=== PATIENT | female | born 1990 | race Hispanic/Latino ===

== ENCOUNTER 2021-03-30 08:55 | Emergency (ER) | payer BC ==
--- NOTE | 2021-03-30 09:13 | EDPHYS ---
Physician Documentation [facility] Name: Kaylee Ryder Age: 30 yrs Sex: Female : 1990 Arrival Date: 03/30/2021 Time: 08:59 Bed 11 Private MD: ED Physician Jake Ferrari HPI: 03/30 09:08 This 30 yrs old Female presents to ER via Ambulatory with complaints of Insect rn Bite. 09:08 The patient or guardian complains of swelling. The complaints affect the palmar aspect rn of left forearm. Onset: The symptoms/episode began/occurred 4 day(s) ago. Modifying factors: The symptoms are alleviated by nothing. the symptoms are aggravated by nothing. Associated signs and symptoms: Pertinent positives: Itching, Pertinent negatives: decreased range of motion, fever, numbness, swelling, weakness. Severity of symptoms: At their worst the symptoms were mild, in the emergency department the symptoms are unchanged. The patient has not experienced similar symptoms in the past. The patient has not recently seen a physician. Patient reports was outdoors a few days ago, unsure of anything but her but small area started to left forearm with itching and redness that has increased in size but has not spread anywhere else. Denies shortness of breath. No fever. Historical: - Allergies: 09:02 No Known Allergies; hb - Immunization history:: Adult Immunizations up to date. - Social history:: Smoking status: Patient denies any tobacco usage or history of. - Family history:: not pertinent. - Hospitalizations: : No recent hospitalization is reported. ROS: 09:08 Constitutional: Negative for fever, chills, and weight loss, Eyes: Negative for injury, rn pain, redness, and discharge, ENT: Negative for injury, pain, and discharge, Neck: Negative for injury, pain, and swelling, Cardiovascular: Negative for chest pain, palpitations, and edema, Respiratory: Negative for shortness of breath, cough, wheezing, and pleuritic chest pain, Abdomen/GI: Negative for abdominal pain, nausea, vomiting, diarrhea, and constipation, Back: Negative for injury and pain, MS/Extremity: Negative for injury and deformity, Skin: Positive for rash and swelling to left forearm Neuro: Negative for headache, weakness, numbness, tingling, and seizure. Exam: 09:08 Constitutional: This is a well developed, well nourished patient who is awake, alert, rn and in no acute distress. Head/Face: Normocephalic, atraumatic. ENT: Speaking full sentences, no stridor Cardiovascular: Regular rate and rhythm. No pulse deficits. Respiratory: No increased work of breathing, no retractions or nasal flaring. Skin: Warm, dry MS/ Extremity: Pulses equal, no cyanosis. Neurovascular intact. Full, normal range of motion. Left volar forearm with 6 to 8 cm area of induration and slight erythema. Positive for excoriations. No bullae or fluctuance. No streaking or tenderness of the proximal arm. Neuro: Awake and alert, GCS 15, oriented to person, place, time, and situation. Cranial nerves II-XII grossly intact. Motor strength 5/5 in all extremities. Sensory grossly intact. Cerebellar exam normal. Normal gait. Vital Signs: 09:01 BP 152 / 83; Pulse 90; Resp 16; Temp 97.8; Pulse Ox 98% on R/A; Pain 4/10; hb 09:28 BP 120 / 87; Pulse 85; Resp 16; Pulse Ox 99% on R/A; es2 MDM: 09:03 Patient medically screened. rn 09:08 Differential diagnosis: cellulitis, insect bite, localized allergic reaction. Data rn reviewed: vital signs, nurses notes, and as a result, I will discharge patient. Counseling: I had a detailed discussion with the patient and/or guardian regarding: the historical points, exam findings, and any diagnostic results supporting the discharge/admit diagnosis, the need for outpatient follow up, to return to the emergency department if symptoms worsen or persist or if there are any questions or concerns that arise at home. Special discussion: I discussed with the patient/guardian in detail that at this point there is no indication for admission to the hospital. It is understood, however, that if the symptoms persist or worsen the patient needs to return immediately for re-evaluation. Administered Medications: No medications were administered Disposition Summary: 03/30/21 09:12 Discharge Ordered Location: Home rn Problem: new rn Symptoms: are unchanged rn Condition: Stable rn Diagnosis - Urticaria, unspecified rn - Cellulitis of left upper limb rn Followup: rn - With: Private Physician - When: As needed - Reason: Recheck today's complaints, Re-evaluation by your physician Discharge Instructions: - Discharge Summary Sheet rn - Pete rn - Rash, Adult rn - Cellulitis, Adult, [id number] rn Forms: - Medication Reconciliation Form rn - Thank You Letter rn - Antibiotic cornice maker - Prescription Opioid Use rn Prescriptions: - Clindamycin HCl 300 mg Oral Capsule - take 1 capsule by ORAL route every 6 hours for 10 days; 40 capsule; Refills: 0, rn Product Selection Permitted - Medrol (Grant) 4 mg Oral Tablets, Dose Pack - take 1 tablet by ORAL route as directed - follow package instructions; 1 rn packet; Refills: 0, Product Selection Permitted Signatures: Jake Ferrari MD MD rn Felicia Maritn RN RN
--- NOTE | 2021-03-30 09:13 | ER ---
Nurse's Notes [facility] Name: Kaylee Ryder Age: 30 yrs Sex: Female : 1990 Arrival Date: 03/30/2021 Time: 08:59 Bed 11 Private MD: Diagnosis: Urticaria, unspecified;Cellulitis of left upper limb Presentation: 03/30 09:01 Chief complaint: Left forearm redness, swelling, burning, and itching x 4 days. hb Coronavirus screen: At this time, the client does not indicate any symptoms associated with coronavirus-19. Ebola Screen: No symptoms or risks identified at this time. Initial Sepsis Screen: Does the patient meet any 2 criteria? No. Patient's initial sepsis screen is negative. Does the patient have a suspected source of infection? No. Patient's initial sepsis screen is negative. Risk Assessment: Do you want to hurt yourself or someone else? Patient reports no desire to harm self or others. Onset of symptoms was March 27, 2021. 09:01 Method Of Arrival: Ambulatory 09:01 Acuity: ELEAZAR 4 hb Triage Assessment: 09:10 Bite description: bite sustained to left forearm by unknown insect, animal information: es2 vaccination(s) is unknown. General: Appears in no apparent distress. comfortable, well developed, well nourished, Behavior is calm, cooperative, appropriate for age. Pain: Denies pain. EENT: No signs and/or symptoms were reported regarding the EENT system. Neuro: Level of Consciousness is awake, alert, obeys commands, Oriented to person, place, time, situation, Appropriate for age Gait is steady, Speech is normal. Cardiovascular: Capillary refill < 3 seconds Patient's skin is warm and dry. Respiratory: Airway is patent Respiratory effort is even, unlabored, Respiratory pattern is regular, symmetrical. GI: No signs and/or symptoms were reported involving the gastrointestinal system. : No signs and/or symptoms were reported regarding the genitourinary system. Derm: Rash noted that is itchy. Musculoskeletal: No signs and/or symptoms reported regarding the musculoskeletal system. Historical: - Allergies: 09:02 No Known Allergies; hb - Immunization history:: Adult Immunizations up to date. - Social history:: Smoking status: Patient denies any tobacco usage or history of. - Family history:: not pertinent. - Hospitalizations: : No recent hospitalization is reported. Screenin:09 Abuse screen: Denies threats or abuse. Denies injuries from another. Nutritional es2 screening: No deficits noted. Tuberculosis screening: No symptoms or risk factors identified. Fall Risk Ambulatory Aid- None/Bed Rest/Nurse Assist (0 pts). Gait- Normal/Bed Rest/Wheelchair (0 pts) Mental Status- Oriented to own ability (0 pts). Assessment: 09:12 Derm: Skin is pink, red. es2 09:13 Derm: Skin is intact. es2 Vital Signs: 09:01 BP 152 / 83; Pulse 90; Resp 16; Temp 97.8; Pulse Ox 98% on R/A; Pain 4/10; hb 09:28 BP 120 / 87; Pulse 85; Resp 16; Pulse Ox 99% on R/A; es2 ED Course: 08:59 Patient arrived in ED. mr 09:02 Triage completed. hb 09:02 Arm band placed on. hb 09:03 Jake Ferrari MD is Attending Physician. rn 09:04 Ingrid Winkler RN is Primary Nurse. es2 09:12 No provider procedures requiring assistance completed. es2 09:13 Patient has correct armband on for positive identification. Call light in reach. es2 09:27 Patient did not have IV access during this emergency room visit. es2 Administered Medications: No medications were administered Outcome: 09:12 Discharge ordered by . rn 09:27 Discharged to home ambulatory. es2 09:27 Condition: stable 09:27 Discharge instructions given to patient, Instructed on discharge instructions, medication usage, Demonstrated understanding of instructions, medications, Prescriptions given X 2. 09:28 Patient left the ED. es2 Signatures: Shayla Mcnair Jake Ferrari MD MD rn Baxter, Heather, RN RN hb Smith, Elizabeth, RN RN es2
[2021-03-30 09:35] VITALS: TEMP 97.8
[2021-03-30 09:37] VITALS: BP 120/87; O2SAT 99
== END 2021-03-30 09:28 | disposition home or self-care (01) ==
LOC: ER 08:55
DX: L03.114 Cellulitis of left upper limb (principal); L50.9 Urticaria, unspecified
CPT/HCPCS: 99282

== ENCOUNTER 2021-07-02 00:41 | Emergency (ER) | payer BC ==
[2021-07-02 03:35] LABS: Urine Blood Negative (Negative); Urine Glucose Negative (Negative); Urine Protein Negative (Negative); Urine Specific Gravity >=1.030 (1.005-1.030); Urine pH 5.5 (5.0-7.0)
--- NOTE | 2021-07-02 03:54 | ER ---
Nurse's Notes [facility] Name: Kaylee Ryder Age: 30 yrs Sex: Female : 1990 Arrival Date: 07/02/2021 Time: 00:44 Bed 7 Private MD: Diagnosis: Pelvic Inflammatory disease Presentation: 07/02 01:05 Chief complaint: Patient states: she is having vaginal itching and burning x 1 week bb denies recent use of antibiotics has burning with urination, denies discharge, has a headach. Coronavirus screen: At this time, the client does not indicate any symptoms associated with coronavirus-19. Ebola Screen: No symptoms or risks identified at this time. Initial Sepsis Screen: Does the patient meet any 2 criteria? No. Patient's initial sepsis screen is negative. Does the patient have a suspected source of infection? No. Patient's initial sepsis screen is negative. Risk Assessment: Do you want to hurt yourself or someone else? Patient reports no desire to harm self or others. Onset of symptoms was June 25, 2021. 01:05 Method Of Arrival: Ambulatory bb 01:05 Acuity: ELEAZAR 3 bb Triage Assessment: 01:08 General: Appears uncomfortable, Behavior is anxious. Pain: Complains of pain in pelvis bb Pain currently is 3 out of 10 on a pain scale. Neuro: Level of Consciousness is awake, alert, obeys commands, Oriented to person, place, time, situation. Cardiovascular: Capillary refill is > 3 seconds Patient's skin is warm and dry. Respiratory: Respiratory effort is even, unlabored, Respiratory pattern is regular. GI: Abdomen is round Reports pelvic burning and itching. : Reports burning with urination. Musculoskeletal: Circulation, motion, and sensation intact. 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 - Social history:: Smoking status: unknown. Screenin:54 Abuse screen: Denies threats or abuse. Denies injuries from another. Nutritional as6 screening: No deficits noted. Tuberculosis screening: No symptoms or risk factors identified. Fall Risk None identified. Assessment: 03:49 General: Appears uncomfortable, well groomed, Behavior is calm, cooperative. Pain: as6 Complains of pain in pelvis Pain currently is 6 out of 10 on a pain scale. Neuro: Level of Consciousness is awake, alert, obeys commands, Oriented to person, place, time, situation. Cardiovascular: Capillary refill < 3 seconds Patient's skin is warm and dry. Respiratory: Airway is patent Trachea midline Respiratory effort is even, unlabored, Respiratory pattern is regular, symmetrical. GI: Abdomen is round non-distended. : Reports burning with urination, cramping, pain vaginal itching. EENT: No signs and/or symptoms were reported regarding the EENT system. Derm: No signs and/or symptoms reported regarding the dermatologic system. Musculoskeletal: Circulation, motion, and sensation intact. Range of motion: intact in all extremities. 04:14 Reassessment: Patient appears in no apparent distress at this time. No changes from as6 previously documented assessment. Vital Signs: 01:05 BP 126 / 92; Pulse 100; Resp 18 S; Temp 98.8(O); Pulse Ox 98% on R/A; Weight 86.18 kg bb (R); Height 5 ft. 3 in. (160.02 cm) (R); Pain 3/10; 03:52 BP 105 / 72; Pulse 70; Resp 18 S; Pulse Ox 97% on R/A; as6 01:05 Body Mass Index 33.66 (86.18 kg, 160.02 cm) bb ED Course: 00:44 Patient arrived in ED. kc5 01:07 Triage completed. bb 01:08 Arm band placed on Patient placed in waiting room, Patient notified of wait time. bb 03:03 Asael Garcia, AWA is Primary Nurse. as6 03:10 Antoine Gomez MD is Attending Physician. pkl 03:52 Astrid Crespo MD is Referral Physician. pkl 03:54 Assist provider with pelvic exam: Set up pelvic tray. Performed by Antoine Gomez MD Specimens as6 sent to lab. Patient tolerated well. 03:55 Placed in gown. Bed in low position. Call light in reach. Side rails up X2. Pulse ox as6 on. NIBP on. Door closed. Warm blanket given. 04:16 Patient did not have IV access during this emergency room visit. as6 Administered Medications: 04:10 Drug: Rocephin (cefTRIAXone) 1 grams Route: IM; Site: right gluteus; as6 04:13 Follow up: Response: No adverse reaction as6 Outcome: 03:53 Discharge ordered by . avila 04:14 Discharged to home ambulatory. as6 04:14 Condition: stable 04:14 Discharge instructions given to patient, Instructed on discharge instructions, follow up and referral plans. medication usage, Prescriptions given X 1. 04:17 Patient left the ED. as6 Signatures: Antoine Gomez MD MD pkl Ballard, Brenda, RN RN Asael Salmon RN RN as6 Deborah Hernandez5
--- NOTE | 2021-07-02 03:54 | EDPHYS ---
Physician Documentation [facility] Name: Kaylee Ryder Age: 30 yrs Sex: Female : 1990 Arrival Date: 07/02/2021 Time: 00:44 Bed 7 Private MD: ED Physician Antoine Gomez HPI: 07/02 03:42 This 30 yrs old Female presents to ER via Ambulatory with complaints of pkl Vaginal Pain. 03:42 The patient presents with pelvic pain, a possible exposure to a sexually transmitted pkl disease, gonorrhea, chlamydia. Onset: The symptoms/episode began/occurred 1 week(s) ago. 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 - Social history:: Smoking status: unknown. ROS: 03:42 Positive for pelvic pain, vaginal itching. pkl 03:42 Eyes: Negative for injury, pain, redness, and discharge, ENT: Negative for injury, pain, and discharge, Neck: Negative for injury, pain, and swelling, Cardiovascular: Negative for chest pain, palpitations, and edema, Respiratory: Negative for shortness of breath, cough, wheezing, and pleuritic chest pain, Abdomen/GI: Negative for abdominal pain, nausea, vomiting, diarrhea, and constipation, Back: Negative for injury and pain, MS/Extremity: Negative for injury and deformity, Skin: Negative for injury, rash, and discoloration, Neuro: Negative for headache, weakness, numbness, tingling, and seizure. Exam: 03:42 Head/Face: Normocephalic, atraumatic. Eyes: Pupils equal round and reactive to light, pkl extra-ocular motions intact. Lids and lashes normal. Conjunctiva and sclera are non-icteric and not injected. Cornea within normal limits. Periorbital areas with no swelling, redness, or edema. ENT: Nares patent. No nasal discharge, no septal abnormalities noted. Tympanic membranes are normal and external auditory canals are clear. Oropharynx with no redness, swelling, or masses, exudates, or evidence of obstruction, uvula midline. Mucous membranes moist. Neck: Trachea midline, no thyromegaly or masses palpated, and no cervical lymphadenopathy. Supple, full range of motion without nuchal rigidity, or vertebral point tenderness. No Meningismus. Chest/axilla: Normal chest wall appearance and motion. Nontender with no deformity. No lesions are appreciated. Cardiovascular: Regular rate and rhythm with a normal S1 and S2. No gallops, murmurs, or rubs. Normal PMI, no JVD. No pulse deficits. Respiratory: Lungs have equal breath sounds bilaterally, clear to auscultation and percussion. No rales, rhonchi or wheezes noted. No increased work of breathing, no retractions or nasal flaring. Abdomen/GI: Soft, non-tender, with normal bowel sounds. No distension or tympany. No guarding or rebound. No evidence of tenderness throughout. Back: No spinal tenderness. No costovertebral tenderness. Full range of motion. Skin: Warm, dry with normal turgor. Normal color with no rashes, no lesions, and no evidence of cellulitis. MS/ Extremity: Pulses equal, no cyanosis. Neurovascular intact. Full, normal range of motion. Neuro: Awake and alert, GCS 15, oriented to person, place, time, and situation. Cranial nerves II-XII grossly intact. Motor strength 5/5 in all extremities. Sensory grossly intact. Cerebellar exam normal. Normal gait. 03:42 : Pelvic Exam: Speculum exam: cervicitis present. Vital Signs: 01:05 BP 126 / 92; Pulse 100; Resp 18 S; Temp 98.8(O); Pulse Ox 98% on R/A; Weight 86.18 kg bb (R); Height 5 ft. 3 in. (160.02 cm) (R); Pain 3/10; 03:52 BP 105 / 72; Pulse 70; Resp 18 S; Pulse Ox 97% on R/A; as6 01:05 Body Mass Index 33.66 (86.18 kg, 160.02 cm) bb MDM: 03:10 Patient medically screened. pkl 03:42 Data reviewed: vital signs, nurses notes, lab test result(s). ED course: Advised to pkl follow up with [employer] Operator ( Dr. Ribeiro ) in 2 to 3 days. Patient understood instructions. 07/02 03:35 Order name: Urine --Ancillary (enter results) ds4 07/02 03:36 Order name: Urine Dipstick-Ancillary; Complete Time: 03:39 EDMS 07/02 03:36 Order name: Urine --Ancillary EDMS 07/02 03:43 Order name: GC (Maciej/Chl) Probe URINE EDMS Administered Medications: 04:10 Drug: Rocephin (cefTRIAXone) 1 grams Route: IM; Site: right gluteus; as6 04:13 Follow up: Response: No adverse reaction as6 Disposition Summary: 07/02/21 03:53 Discharge Ordered Location: Home pkl Problem: new pkl Symptoms: are unchanged pkl Condition: Stable pkl Diagnosis - Pelvic Inflammatory disease pkl Followup: pkl - With: Astrid Crespo MD - When: 2 - 3 days - Reason: Re-evaluation by your physician Discharge Instructions: - Discharge Summary Sheet pkl Forms: - Medication Reconciliation Form pkl - Thank You Letter pkl - Antibiotic Education pkl - Prescription Opioid Use pkl - Work release form ds4 Prescriptions: - Doxycycline Hyclate 100 mg Oral Tablet - take 1 tablet by ORAL route every 12 hours; 20 tablet; Refills: 0, Product pkl Selection Permitted Signatures: Dispatcher [employer] Antoine Marcelino MD MD pkl Katy Villasenor, RN RN Asael Salmon RN RN as6
[2021-07-02] MEDS ORDERED: LIDOCAINE 1% MPF 5 ML VIAL ONE (04:03)
[2021-07-02] MEDS ORDERED: CEFTRIAXONE 1000 MG/VIAL ONE (04:04)
[2021-07-02 04:24] VITALS: TEMP 98.8
[2021-07-02 04:26] VITALS: BP 105/72; O2SAT 97
[2021-07-02 04:59] LABS: Urine Specific Gravity/Preg >1.030 (1.005-1.030)
[2021-07-06 06:01] LABS: C.trachomatis RNA,TMA Not Detected (Not Detected)
== END 2021-07-02 04:17 | disposition home or self-care (01) ==
LOC: ER 00:41
DX: N73.9 Female pelvic inflammatory disease, unspecified (principal)
CPT/HCPCS: 81003; 81025; 87490; 87590; 96372; 99284